=== PATIENT | male | born 1990 | race Caucasian/White ===

== ENCOUNTER 2019-10-29 04:49 | Emergency (ER) | payer OTHER, SELFPAY ==
[2019-10-29 04:55] VITALS: BP 178/108; PULSE 111; RESP 18; TEMP 36.6; O2SAT 92; BMI 33.8
[2019-10-29 05:07] VITALS: RESP 18; O2SAT 100
[2019-10-29] MEDS: ondansetron 2 mg/ML SDV 2 mL 4 MG IVP (05:07)
[2019-10-29] MEDS: HYDROmorphone 1 mg/mL INJ 1 mL IVP (05:07)
[2019-10-29] MEDS: lactated ringers 1,000 ML 200 ML IV (05:08)
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
[2019-10-29 05:29] VITALS: RESP 18; O2SAT 99
[2019-10-29] MEDS: fentaNYL 50 mcg/mL INJ 2mL 100 MCG IVP (05:29)
[2019-10-29] MEDS: eye irrigation 30 mL Btl EYE-BOTH (05:29)
[2019-10-29 05:49] VITALS: BP 140/77; PULSE 106; RESP 18; O2SAT 96
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
[2019-10-29 06:49] VITALS: BP 148/92; PULSE 78; RESP 18; O2SAT 97
--- NOTE | 2019-10-30 10:26 | DCPLANNER ---
right of way manager had message to schedule a follow up appointment with Wound Care. right of way manager called Wound Care, spoke with Lindy, a follow up appointment is scheduled for Sunday, November 03, 2019 at 2:[address] Martel. right of way manager called patient and gave patient the appointment information. Patient stated that he would attend the appointment.
== END 2019-10-29 06:52 | disposition home or self-care (01) ==
PROVIDERS: Emergency Provider Emergency Medicine
DX: T23.291A Burn of second degree of multiple sites of right wrist and hand, initial encounter (principal); T20.19XA Burn of first degree of multiple sites of head, face, and neck, initial encounter; X08.8XXA Exposure to other specified smoke, fire and flames, initial encounter; Y92.69 Other specified industrial and construction area as the place of occurrence of the external cause
CPT/HCPCS: 12345; 71045; 96360; 96361; 96365; 96366; 96375; 99283; J1170; J2405; J3010

== ENCOUNTER 2019-11-16 13:08 | Outpatient (RCR) | payer OTHER, SELFPAY | END 2019-11-29 23:59 | disposition home or self-care (01) | LOC: WOUND 13:08 | PROVIDERS: Visit Provider Surgery | DX: T23.351A Burn of third degree of right palm, initial encounter (principal); T23.371A Burn of third degree of right wrist, initial encounter; X08.8XXA Exposure to other specified smoke, fire and flames, initial encounter | CPT/HCPCS: 97597; 97598; 99203; 99212; 99214 ==

== ENCOUNTER 2019-11-21 10:49 | Outpatient (CLI) | payer OTHER, SELFPAY | END 2019-11-21 10:50 | disposition home or self-care (01) | LOC: SPT 10:49 | PROVIDERS: PCP Electrodiagnostic Medicine; Referring Provider Surgery; Visit Provider Surgery | DX: T23.302D Burn of third degree of left hand, unspecified site, subsequent encounter (principal); X58.XXXD Exposure to other specified factors, subsequent encounter | CPT/HCPCS: 97750 ==

== ENCOUNTER 2020-02-25 14:50 | Outpatient (CLI) | payer BC, SELFPAY ==
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
== END 2020-02-25 14:51 | disposition home or self-care (01) ==
LOC: RADWPI 14:55
PROVIDERS: Family Provider Nurse Practitioner Family; PCP Nurse Practitioner Family; Visit Provider Nurse Practitioner Family
DX: R07.81 Pleurodynia (principal)
CPT/HCPCS: 71046; 71100

== ENCOUNTER 2021-03-16 14:30 | Outpatient (CLI) | payer BC, SELFPAY ==
--- NOTE | 2021-03-16 14:38 | XR_ITS ---
WS: [id number] HAND LEFT TECHNIQUE: 3 views of the left hand CLINICAL INFORMATION: LEFT HAND PAIN COMPARISON: None. FINDINGS: Normal metacarpals. Normal MCP joint. Metacarpal heads are normal in appearance. Normal PIP and DIP j oints. No evidence of acute fracture or dislocation. Radiocarpal joint: Normal. Carpal bones: Normal. XR/XR hand LT min 3V* [id number] IMPRESSION: Normal left hand.
== END 2021-03-16 14:31 | disposition home or self-care (01) ==
PROVIDERS: PCP Clinical Nurse Specialist Adult Health; Visit Provider Clinical Nurse Specialist Adult Health
DX: M79.642 Pain in left hand (principal)
CPT/HCPCS: 73130

== ENCOUNTER 2021-04-13 08:12 | Outpatient (CLI) | payer BC, SELFPAY ==
[2021-04-13 09:24] LABS: Cortisol Random 10.78 ug/dL (2.47-19.5); Free T4 Free Thyroxine 0.97 ng/dL (0.82-1.77); Testosterone Total 484.6 ng/dL (249-836); Thyroid Stimulating Hormone 0.97 uIU/mL (0.27-4.20)
[2021-04-13 09:56] LABS: Prolactin 10.54 ng/mL (4.0-15.2)
[2021-04-13 09:57] LABS: Follicle Stimulating Hormone 4.5 mIU/mL (1.5-12.4); Luteinizing Hormone 5.5 mIU/mL (1.7-8.6)
[2021-04-16 18:36] LABS: Testosterone, Free 82.4 pg/mL (46.0-224.0)
[2021-04-19 13:13] LABS: IGF1 LC/MS 85 ng/mL (53-331); Z Score (Male) -1.2 SD (-2.0 - +2.0)
== END 2021-04-13 08:13 | disposition home or self-care (01) ==
PROVIDERS: PCP Clinical Nurse Specialist Adult Health; Visit Provider Internal Medicine
DX: E23.7 Disorder of pituitary gland, unspecified (principal); E29.1 Testicular hypofunction
CPT/HCPCS: 36415; 82533; 83001; 83002; 84146; 84305; 84402; 84403; 84439; 84443

== ENCOUNTER 2021-12-19 10:21 | Emergency (ER) | payer BC, SELFPAY ==
--- NOTE | 2021-12-19 10:22 | XRR_ITS ---
PROCEDURE INFORMATION: Exam: XR Chest Exam date and time: 12/19/2021 10:33 AM Age: 31 years old Clinical indication: Shortness of breath; Additional info: SOB TECHNIQUE: Imaging protocol: XR of the chest. Views: 1 view. COMPARISON: CR XR chest 2V* [id number] 02/25/2020 3:07 PM FINDINGS: Lungs: COPD and interstitial prominence. Pleural spaces: No pleural effusion. Heart/Mediastinum: Epicardial fat, without cardiomegaly. Bones/joints: Unremarkable. XR/XR chest 1V portable [id number] IMPRESSION: COPD and interstitial prominence.
--- NOTE | 2021-12-19 10:29 | ECG_ITS ---
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 Measurements Intervals [place] Rate: 83 P: 62 HI: 167 QRS: 47 QRSD: 90 T: 54 QT: 351 QTc: 413 Interpretive Statements SINUS RHYTHM WITH SINUS ARRHYTHMIA No previous ECG available for comparison Electronically Signed On 12-19-2021 12:59:09 CDT by Cornelius Ray M.D. [id number]
[2021-12-19 10:31] VITALS: BP 130/85; PULSE 96; RESP 16; O2SAT 98
--- NOTE | 2021-12-19 10:32 | W.ED.SOB ---
HPI - SOB/Dyspnea General: Chief Complaint: Shortness of Breath/Dyspnea Stated Complaint: Difficulty Breathing Time Seen by Provider: 12/19/21 10:24 Source: patient Mode of arrival: ambulatory Limitations: no limitations History of Present Illness: HPI Narrative: 31-year-old male states that he has a history of asthma states he started having shortness of breath roughly 2 hours ago after mowing his yard states that he had done 2 breathing treatments with minimal relief he states he does get quite anxious when he has anxiety attack started feeling very anxious and felt like to get a deep breath then. He states he also has a history of a spontaneous pneumothorax in the past. Denies any fever denies any cough denies any chest pain. [facility] ED PFSH: Medical History (Updated 12/19/21 @ 11:48 by Juancarlos Acuna MD) Anxiety Asthma Depression Testosterone deficiency in male Family History Father Diabetes Hypertension Mother , Passed last month from pneumonia Diabetes Hypertension Stroke Social History Smoking and tobacco status: former smoker Alcohol intake: current Alcohol intake frequency: holidays/special occasions only Alcohol type: beer and hard liquor Course Vital Signs: Vital signs: Vital Signs Pulse Rate 85 12/19/21 11:16 Respiratory Rate 12 12/19/21 11:16 Blood Pressure 139/79 12/19/21 11:16 Pulse Oximetry 90 12/19/21 11:16 MDM - SOB/Dyspnea Medical Decision Making Patient presents here with dyspnea likely from an asthma exacerbation likely had a panic attack as well from his asthma exacerbated his symptoms he feels much improved here after breathing treatment and Ativan we will place him on 5 days of steroids his x-ray here is normal blood work is normal as well troponin and D-dimer is negative he is to follow-up with PCP and return if worsening. Lab Data : 12/19/21 10:41 12/19/21 10:41 Labs/Radiology: Laboratory Results WBC 8.3 10^3/uL (4.0-10.0) 12/19/21 10:41 RBC 4.97 10^6/uL (4.1-5.3) 12/19/21 10:41 Hgb 15.1 g/dL (11.7-16.6) 12/19/21 10:41 Hct 42.2 % (42.0-52.0) 12/19/21 10:41 MCV 84.9 fl (80-94) 12/19/21 10:41 MCH 30.4 pg (28.0-34.0) 12/19/21 10:41 MCHC 35.8 g/dL (30.0-36.0) 12/19/21 10:41 RDW 13.0 % (12.1-15.1) 12/19/21 10:41 Plt Count 223 10^3/cmm (130-400) 12/19/21 10:41 MPV 11.7 fL (7.4-10.4) H 12/19/21 10:41 Neut % (Auto) 56.7 % 12/19/21 10:41 Lymph % (Auto) 34.0 % 12/19/21 10:41 [place] % (Auto) 5.0 % 12/19/21 10:41 Eos % (Auto) 3.4 % 12/19/21 10:41 Baso % (Auto) 0.7 % 12/19/21 10:41 Neut # (Auto) 4.68 10^3/uL (1.8-7.7) 12/19/21 10:41 Lymph # (Auto) 2.8 10^3/uL (0.8-4.8) 12/19/21 10:41 [place] # (Auto) 0.4 10^3/uL (0.2-0.9) 12/19/21 10:41 Eos # (Auto) 0.3 10^3/uL (0.0-0.8) 12/19/21 10:41 Baso # (Auto) 0.1 10^3/uL (0.0-0.1) 12/19/21 10:41 Nucleated RBC % (auto) 0 % 12/19/21 10:41 Nucleated RBCs # 0.0 /100WBC 12/19/21 10:41 D-Dimer <= 0.27 ug/mIFEU (0-0.59) 12/19/21 10:56 Sodium 141 mmol/L (136-145) 12/19/21 10:41 Potassium 3.3 mmol/L (3.5-5.1) L 12/19/21 10:41 Chloride 104 mmol/L (98-107) 12/19/21 10:41 Carbon Dioxide 22 mmol/L (22-29) 12/19/21 10:41 Anion Gap 18.3 (5-19) 12/19/21 10:41 BUN 11 mg/dL (6-20) 12/19/21 10:41 Creatinine 0.9 mg/dL (0.7-1.2) 12/19/21 10:41 GFR Calculation 97.2 mL/min (90-130) 12/19/21 10:41 Glucose 137 mg/dL (65-115) H 12/19/21 10:41 Calculated Osmolality 294 mOsm/kg (285-295) 12/19/21 10:41 Calcium 8.7 mg/dL (8.5-10.5) 12/19/21 10:41 Total Bilirubin 0.5 mg/dL (0.15-1.2) 12/19/21 10:41 AST 25 U/L (0-40) 12/19/21 10:41 ALT 25 U/L (0-41) 12/19/21 10:41 Alkaline Phosphatase 72 IU/L (40-130) 12/19/21 10:41 Troponin T Baseline 7 ng/L (0-15) 12/19/21 10:41 Total Protein 7.1 g/dL (6.6-8.7) 12/19/21 10:41 Albumin 4.7 g/dL (3.5-5.2) 12/19/21 10:41 Globulin 2.4 g/dL (1.3-4.6) 12/19/21 10:41 EKG Data EKG 1: I personally reviewed and interpreted this EKG as follows: EKG Interpretation Date: 12/19/21 EKG interpretation time: 10:45 Interpretation: nsr hr [address] or t wave abnormalities qrs 90 qtc 391 Discharge Plan Discharge Patient Disposition: Home Clinical Impression: Asthma with exacerbation Condition: Stable Prescriptions: New prednisone 50 mg tablet 50 mg PO DAILY Qty: 5 0RF No Action escitalopram oxalate [Lexapro] 10 mg tablet See Rx Instructions PO DAILY 0RF Rx Instructions: 10 mg daily for 7 days then 10 mg twice a day PO daily; lorazepam 0.5 mg tablet 0.5 mg PO BID PRN0RF hydroxyzine HCl 10 mg tablet 10 mg PO .at bedtime 0RF Discharge Orders: Discharge ED (Routine); Ordered 12/19/21 Ordered By: Juancarlos Acuna Discharge Diet: Advance as tolerated Discharge Activity: Resume usual activity Patient Instructions: Asthma (ED) Coding Level of Care Code ED Software Applications Specialist for Mago Griggs
[2021-12-19 10:35] VITALS: PULSE 90; RESP 16; O2SAT 95
[2021-12-19] MEDS: ipratropium-albuterol 3 mL Neb INHALATION (10:48)
[2021-12-19 10:49] VITALS: PULSE 89
[2021-12-19 10:49] LABS: Basophils # 0.1 10^3/uL (0.0-0.1); Basophils % 0.7 %; Eosinophils # 0.3 10^3/uL (0.0-0.8); Eosinophils % 3.4 %; Hematocrit 42.2 % (42.0-52.0); Hemoglobin 15.1 g/dL (11.7-16.6); Lymphocytes # 2.8 10^3/uL (0.8-4.8); Mean Corpuscular HGB Conc 35.8 g/dL (30.0-36.0); Mean Corpuscular Hemoglobin 30.4 pg (28.0-34.0); Mean Corpuscular Volume 84.9 fl (80-94); Mean Platelet Volume 11.7 fL (7.4-10.4); Monocytes # 0.4 10^3/uL (0.2-0.9); Neutrophils # 4.68 10^3/uL (1.8-7.7); Neutrophils % 56.7 %; Nucleated Red Blood Cells % 0 %; Platelet Count 223 10^3/cmm (130-400); Red Blood Count 4.97 10^6/uL (4.1-5.3); White Blood Count 8.3 10^3/uL (4.0-10.0)
[2021-12-19] MEDS: LORazepam 2 mg/mL INJ 1 mL 1 MG IVP (10:52)
[2021-12-19 11:07] LABS: Alanine Aminotransferase 25 U/L (0-41); Albumin Level 4.7 g/dL (3.5-5.2); Alkaline Phosphatase 72 IU/L (40-130); Aspartate Amino Transferase 25 U/L (0-40); Blood Urea Nitrogen 11 mg/dL (6-20); Calcium 8.7 mg/dL (8.5-10.5); Carbon Dioxide 22 mmol/L (22-29); Chloride 104 mmol/L (98-107); Globulin 2.4 g/dL (1.3-4.6); Glomerular Filtration Rate 97.2 mL/min (90-130); Glucose 137 mg/dL (65-115); Osmolality Calculated 294 mOsm/kg (285-295); Sodium 141 mmol/L (136-145); Total Bilirubin 0.5 mg/dL (0.15-1.2); Total Protein 7.1 g/dL (6.6-8.7)
[2021-12-19 11:14] LABS: D Dimer <= 0.27 ug/mIFEU (0-0.59)
[2021-12-19 11:16] VITALS: BP 139/79; PULSE 85; RESP 12; O2SAT 90
[2021-12-19 11:25] LABS: Anion Gap 18.3 (5-19)
[2021-12-19 11:26] LABS: Potassium 3.3 mmol/L (3.5-5.1)
[2021-12-19 11:44] LABS: Troponin(5th) Baseline 7 ng/L (0-15)
[2021-12-19 11:58] VITALS: BP 141/78; PULSE 91; RESP 14; O2SAT 97
--- NOTE | 2021-12-28 21:33 | W.ED.SOB ---
HPI - SOB/Dyspnea General: Chief Complaint: Shortness of Breath/Dyspnea Stated Complaint: Difficulty Breathing Time Seen by Provider: 12/19/21 10:24 Source: patient Mode of arrival: ambulatory Limitations: no limitations History of Present Illness: HPI Narrative: . Associated symptoms: Deny abdominal pain, chest pain, fever(s), nausea or vomiting Review of Systems Const: Denies: fever(s), chills, body aches or change in appetite Eyes: Denies: blurry vision or eye discomfort ENMT: Denies: throat pain or dental pain Card: Denies: chest pain Resp: Reports: dyspnea and wheezing GI: Denies: abdominal pain, nausea, vomiting or diarrhea : Denies: dysuria Musc: Denies: neck pain or back pain Skin/Breast: Denies: rash Neuro: Denies: headache(s) Psych: Reports: anxiety Navdeep/Lymph: Denies: easy bruising All/Imm: Denies: urticaria PFSH ED PFSH: Medical History (Updated 12/27/21 @ 00:00 by ) Anxiety Asthma Depression Testosterone deficiency in male Family History Father Diabetes Hypertension Mother , Passed last month from pneumonia Diabetes Hypertension Stroke Social History Smoking and tobacco status: former smoker Alcohol intake: current Alcohol intake frequency: holidays/special occasions only Alcohol type: beer and hard liquor Physical Exam Const: COMMON NORMALS: patient oriented x3 GENERAL APPEARANCE: anxious HENMT: COMMON NORMALS: normocephalic and atraumatic HEAD & SCALP: normocephalic and atraumatic Eye: COMMON NORMALS: Equal, round and reactive pupils present and EOMs intact bilaterally PUPIL: Yes Equal, round and reactive pupils present Neck/C-Spine: COMMON NORMALS: full ROM and supple Chest: COMMONS NORMALS: normal inspection of the chest and normal palpation of entire chest wall Resp: COMMON NORMALS: No retractions and No use of accessory muscles AUSCULTATION: wheezes Cardio: COMMON NORMALS: regular rate, regular rhythm and No murmurs present (Cardio) RATE: regular rate RHYTHM: regular rhythm GI: COMMON NORMALS: Normal to inspection, nondistended, normoactive bowel sounds present, Soft to palpation, non-tender and no masses PALPATION: Yes Soft to palpation Extremity: COMMON NORMALS: normal to inspection and full ROM Neuro: COMMON NORMALS: patient oriented x3, moves all extremities and no focal motor deficits Psych: COMMON NORMALS: mental status grossly normal, Normal thought process present and cooperative THOUGHT PROCESS: Normal thought process present Skin: COMMON NORMALS: no rashes or lesions noted and no wounds GENERAL SKIN EXAM: no rashes or lesions noted Course Vital Signs: Vital signs: Vital Signs Pulse Rate 91 12/19/21 11:58 Respiratory Rate 14 12/19/21 11:58 Blood Pressure 141/78 12/19/21 11:58 Pulse Oximetry 97 12/19/21 11:58 MDM - SOB/Dyspnea Medical Decision Making Addendum was completed review of system and physical exam for previous note when patient was seen by me on 12/19 Lab Data : 12/19/21 10:41 12/19/21 10:41 Labs/Radiology: Radiology Impressions Chest X-Ray 12/19/21 10:22 IMPRESSION: COPD and interstitial prominence. Laboratory Results WBC 8.3 10^3/uL (4.0-10.0) 12/19/21 10:41 RBC 4.97 10^6/uL (4.1-5.3) 12/19/21 10:41 Hgb 15.1 g/dL (11.7-16.6) 12/19/21 10:41 Hct 42.2 % (42.0-52.0) 12/19/21 10:41 MCV 84.9 fl (80-94) 12/19/21 10:41 MCH 30.4 pg (28.0-34.0) 12/19/21 10:41 MCHC 35.8 g/dL (30.0-36.0) 12/19/21 10:41 RDW 13.0 % (12.1-15.1) 12/19/21 10:41 Plt Count 223 10^3/cmm (130-400) 12/19/21 10:41 MPV 11.7 fL (7.4-10.4) H 12/19/21 10:41 Neut % (Auto) 56.7 % 12/19/21 10:41 Lymph % (Auto) 34.0 % 12/19/21 10:41 [place] % (Auto) 5.0 % 12/19/21 10:41 Eos % (Auto) 3.4 % 12/19/21 10:41 Baso % (Auto) 0.7 % 12/19/21 10:41 Neut # (Auto) 4.68 10^3/uL (1.8-7.7) 12/19/21 10:41 Lymph # (Auto) 2.8 10^3/uL (0.8-4.8) 12/19/21 10:41 [place] # (Auto) 0.4 10^3/uL (0.2-0.9) 12/19/21 10:41 Eos # (Auto) 0.3 10^3/uL (0.0-0.8) 12/19/21 10:41 Baso # (Auto) 0.1 10^3/uL (0.0-0.1) 12/19/21 10:41 Nucleated RBC % (auto) 0 % 12/19/21 10:41 Nucleated RBCs # 0.0 /100WBC 12/19/21 10:41 D-Dimer <= 0.27 ug/mIFEU (0-0.59) 12/19/21 10:56 Sodium 141 mmol/L (136-145) 12/19/21 10:41 Potassium 3.3 mmol/L (3.5-5.1) L 12/19/21 10:41 Chloride 104 mmol/L (98-107) 12/19/21 10:41 Carbon Dioxide 22 mmol/L (22-29) 12/19/21 10:41 Anion Gap 18.3 (5-19) 12/19/21 10:41 BUN 11 mg/dL (6-20) 12/19/21 10:41 Creatinine 0.9 mg/dL (0.7-1.2) 12/19/21 10:41 GFR Calculation 97.2 mL/min (90-130) 12/19/21 10:41 Glucose 137 mg/dL (65-115) H 12/19/21 10:41 Calculated Osmolality 294 mOsm/kg (285-295) 12/19/21 10:41 Calcium 8.7 mg/dL (8.5-10.5) 12/19/21 10:41 Total Bilirubin 0.5 mg/dL (0.15-1.2) 12/19/21 10:41 AST 25 U/L (0-40) 12/19/21 10:41 ALT 25 U/L (0-41) 12/19/21 10:41 Alkaline Phosphatase 72 IU/L (40-130) 12/19/21 10:41 Troponin T Baseline 7 ng/L (0-15) 12/19/21 10:41 Total Protein 7.1 g/dL (6.6-8.7) 12/19/21 10:41 Albumin 4.7 g/dL (3.5-5.2) 12/19/21 10:41 Globulin 2.4 g/dL (1.3-4.6) 12/19/21 10:41 Discharge Plan Discharge Patient Disposition: Home Clinical Impression: Asthma with exacerbation Condition: Stable Prescriptions: New prednisone 50 mg tablet 50 mg PO DAILY Qty: 5 0RF No Action escitalopram oxalate [Lexapro] 10 mg tablet See Rx Instructions PO DAILY 0RF Rx Instructions: 10 mg daily for 7 days then 10 mg twice a day PO daily; lorazepam 0.5 mg tablet 0.5 mg PO BID PRN0RF hydroxyzine HCl 10 mg tablet 10 mg PO .at bedtime 0RF Discharge Orders: Discharge ED (Routine); Ordered 12/19/21 Ordered By: Juancarlos Acuna Discharge Diet: Advance as tolerated Discharge Activity: Resume usual activity Patient Instructions: Asthma (ED) Coding Level of Care Code ED Atmospheric Technician for Mago Griggs
== END 2021-12-19 11:59 | disposition home or self-care (01) ==
PROVIDERS: Emergency Provider Emergency Medicine
DX: J45.901 Unspecified asthma with (acute) exacerbation (principal)
CPT/HCPCS: 71045; 80053; 84484; 85025; 85378; 93005; 94640; 96374; 96375; 99285; J2060; J2930

== ENCOUNTER → 2022-01-14 13:58 | Outpatient (BNVA) | payer BC, SELFPAY | DX: I10 Essential (primary) hypertension (principal) | CPT/HCPCS: 80053; 80061 ==

== ENCOUNTER → 2023-02-24 08:24 | Outpatient (BNVA) | payer OTHER, SELFPAY | PROVIDERS: PCP Clinical Nurse Specialist Adult Health; Visit Provider Clinical Nurse Specialist Adult Health | DX: I10 Essential (primary) hypertension (principal); E29.1 Testicular hypofunction | CPT/HCPCS: 80053; 80061; 82040; 84270; 84403; 85025 ==

== ENCOUNTER → 2023-04-06 10:14 | Outpatient (BNVA) | payer OTHER, SELFPAY | PROVIDERS: PCP Clinical Nurse Specialist Adult Health; Visit Provider Clinical Nurse Specialist Adult Health | DX: E29.1 Testicular hypofunction (principal) | CPT/HCPCS: 82040; 84270; 84403 ==

== ENCOUNTER 2023-04-10 03:04 | Emergency (ER) | payer OTHER, SELFPAY ==
--- NOTE | 2023-04-10 03:17 | XRR_ITS ---
PROCEDURE INFORMATION: Exam: XR Chest Exam date and time: 04/10/2023 3:18 AM Age: 32 years old Clinical indication: Shortness of breath; Left-sided; Patient HX: Left sided chest pain with SOB. TECHNIQUE: Imaging protocol: Radiologic exam of the chest. Views: 1 view. COMPARISON: CR XR chest 1V portable [id number] 12/19/2021 10:33 AM FINDINGS: Lungs: Unremarkable. No consolidation. Pleural spaces: Unremarkable. No pleural effusion. No pneumothorax. Heart/Mediastinum: Unremarkable. No cardiomegaly. Bones/joints: Unremarkable. XR/XR chest 1V portable [id number] IMPRESSION: No acute findings.
[2023-04-10 03:20] VITALS: BP 145/79; PULSE 128; RESP 18; O2SAT 98; BMI 28.7
--- NOTE | 2023-04-10 03:23 | ECG_ITS ---
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 Measurements Intervals [place] Rate: 57 P: 30 ID: 162 QRS: 61 QRSD: 98 T: 54 QT: 407 QTc: 399 Interpretive Statements SINUS BRADYCARDIA POSSIBLE RIGHT VENTRICULAR CONDUCTION DELAY [RSR (QR) IN V1/V2] Compared to ECG 12/19/2021 10:45:30 Sinus rhythm no longer present Sinus arrhythmia no longer present Electronically Signed On 04-10-2023 10:54:46 CDT by Zeus Daniels M.D. [id number]
[2023-04-10 03:33] VITALS: BP 150/86; PULSE 58; RESP 17; O2SAT 98
[2023-04-10 03:45] LABS: Basophils % 0.3 %; Eosinophils % 0.2 %; Hematocrit 41.6 % (37-53); Lymphocytes # 0.6 10^3/uL (0.8-4.8); Mean Corpuscular HGB Conc 33.4 g/dL (30-55); Mean Corpuscular Volume 89.8 fl (82-101); Mean Platelet Volume 12.6 fL (7.4-10.4); Monocytes # 0.1 10^3/uL (0.2-0.9); Monocytes % 1.3 %; Neutrophils # 5.65 10^3/uL (1.8-7.7); Neutrophils % 88.9 %; Nucleated Red Blood Cells % 0 %; Platelet Count 182 10^3/cmm (157-399); Red Blood Count 4.63 10^6/uL (3.85-5.65); Red Cell Distribution Width 13.3 % (12.1-15.1); White Blood Count 6.35 10^3/uL (3.29-11.43)
[2023-04-10] MEDS: ondansetron 2 mg/ML SDV 2 mL 4 MG IVP (04:05)
[2023-04-10 04:06] VITALS: RESP 15
[2023-04-10 04:06] LABS: SARS Covid-2 Antigen negative (Negative)
[2023-04-10] MEDS: ketorolac 30 mg/mL INJ 15 MG IVP (04:06)
[2023-04-10] MEDS: morphine 4 mg/mL SDV 1 mL IVP (04:06)
[2023-04-10 04:17] LABS: Troponin(5th) Baseline 6 ng/L (0-15)
[2023-04-10 04:27] LABS: Alanine Aminotransferase 16 U/L (0-41); Albumin Level 4.8 g/dL (3.5-5.2); Alkaline Phosphatase 88 U/L (40-130); Aspartate Amino Transferase 19 U/L (0-40); Blood Urea Nitrogen 10 mg/dL (6-20); Calcium 9.3 mg/dL (8.5-10.5); Carbon Dioxide 28 mmol/L (22-29); Chloride 104 mmol/L (98-107); Globulin 2.4 g/dL (1.3-4.6); Glomerular Filtration Rate 96.6 mL/min (90-130); Glucose 139 mg/dL (65-115); NT Pro B Type Natriuretic Pept 252 pg/mL (0-125); Osmolality Calculated 293 mOsm/kg (285-295); Sodium 141 mmol/L (136-145); Total Bilirubin 0.7 mg/dL (0.15-1.2); Total Protein 7.2 g/dL (6.6-8.7)
[2023-04-10 04:35] VITALS: PULSE 52; RESP 18; O2SAT 97
[2023-04-10] MEDS: ipratropium-albuterol 3 mL Neb INHALATION (04:35)
[2023-04-10 04:39] VITALS: PULSE 55; RESP 1; O2SAT 98
[2023-04-10] MEDS: methylPREDNISolone sod succ 125 MG in water for injection-sterile 2 ML 24 MG IVP (04:54)
[2023-04-10 05:03] VITALS: BP 149/84; PULSE 63; RESP 12; O2SAT 98
--- NOTE | 2023-04-10 05:28 | ED_ITS ---
HPI - Chest Pain General: Chief Complaint: Chest Pain Stated Complaint: shortness of breath and chest pain Time Seen by Provider: 04/10/23 03:41 History of Present Illness: 32-year-old male he states he has been sick for about 2 weeks. He has had cough, congestion. He developed a pleuritic chest pain, that is significantly worse with coughing and deep breathing. Pain is mainly on the left side of his chest. He says that he ran a fever yesterday. Not today. He presents from work. He says that his albuterol has helped to some degree, but he is out of it now. He presents worried because he had a spontaneous pneumothorax as a child, and does not want that to happen again. Associated symptoms: Reports abdominal pain, dyspnea, fever(s) and nausea; Deny palpitations or vomiting Review of Systems Const: Reports: fever(s) and chills Eyes: Denies: change in vision ENMT: Denies: throat pain Card: Reports: chest pain; Denies: palpitations Resp: Reports: dyspnea and productive cough GI: Reports: abdominal pain and nausea; Denies: vomiting PFSH ED PFSH: Medical History Anxiety Asthma Depression Hypertension Testosterone deficiency in male Surgical History No pertinent past surgical history Family History Father Diabetes Hypertension Mother , Passed last month from pneumonia Diabetes Hypertension Stroke Social History Smoking and tobacco status: former smoker Alcohol intake: current Alcohol intake frequency: holidays/special occasions only Alcohol type: beer and hard liquor Physical Exam Const: COMMON NORMALS: no acute distress GENERAL APPEARANCE: cooperative and anxious; not ill appearing and not frail appearing HENMT: COMMON NORMALS: normocephalic, atraumatic and Normal external nose present HEAD & SCALP: normocephalic and atraumatic FACE & SINUS: normal facial exam and face symmetric NOSE: Normal external nose present Eye: COMMON NORMALS: Equal, round and reactive pupils present and EOMs intact bilaterally PUPIL: Yes Equal, round and reactive pupils present Neck/C-Spine: GENERAL: Yes trachea midline Lymph: LYMPHATIC: no lymphadenopathy noted Chest: CHEST: Yes Symmetrical chest wall rise Resp: COMMON NORMALS: normal respiratory effort, No retractions, No use of accessory muscles and clear to auscultation bilaterally AUSCULTATION: clear to auscultation bilaterally Cardio: COMMON NORMALS: regular rate and regular rhythm RATE: regular rate RHYTHM: regular rhythm GI: COMMON NORMALS: Normal to inspection, nondistended, normoactive bowel sounds present Extremity: COMMON NORMALS: no pedal edema Neuro: HAYDEE COMA SCALE: document GCS findings [place] coma scale eye opening: Spontaneous [place] coma scale verbal response: Orientated [place] coma scale motor response: Obey commands [place] coma scale total score: 15 SENSORY EXAM: Yes extremities (intact) Psych: COMMON NORMALS: speech normal SPEECH: Yes normal speech Skin: COMMON NORMALS: no rashes or lesions noted GENERAL SKIN EXAM: no rashes or lesions noted Course Vital Signs: Vital signs: Vital Signs Pulse Rate 63 04/10/23 05:03 Respiratory Rate 12 04/10/23 05:03 Blood Pressure 149/84 04/10/23 05:03 Pulse Oximetry 98 04/10/23 05:03 Oxygen Delivery Me thod Room Air 04/10/23 04:39 MDM - Chest Pain Medical Decision Making Patient with ongoing pleuritic reproducible left-sided chest discomfort for quite some time. CBC is normal. BMP is not remarkable. Chest x-ray is ne gative. EKG shows sinus bradycardia with normal axis normal intervals and no acute ST wave changes. Troponin is 6. Lab Data 04/10/23 03:27 04/10/23 03:27 Radiology Impressions Chest X-Ray 04/10/23 03:17 IMPRESSION: No acute findings. Laboratory Results WBC 6.35 10^3/uL (3.29-11.43) 04/10/23 03:27 RBC 4.63 10^6/uL (3.85-5.65) 04/10/23 03:27 Hgb 13.90 g/dL (11.27-16.99) 04/10/23 03:27 Hct 41.6 % (37-53) 04/10/23 03:27 MCV 89.8 fl (82-101) 04/10/23 03:27 MCH 30.0 pg (27-33) 04/10/23 03:27 MCHC 33.4 g/dL (30-55) 04/10/23 03:27 RDW 13.3 % (12.1-15.1) 04/10/23 03:27 Plt Count 182 10^3/cmm (157-399) 04/10/23 03:27 MPV 12.6 fL (7.4-10.4) H 04/10/23 03:27 Neut % (Auto) 88.9 % 04/10/23 03:27 Lymph % (Auto) 9.0 % 04/10/23 03:27 [place] % (Auto) 1.3 % 04/10/23 03:27 Eos % (Auto) 0.2 % 04/10/23 03:27 Baso % (Auto) 0.3 % 04/10/23 03:27 Neut # (Auto) 5.65 10^3/uL (1.8-7.7) 04/10/23 03:27 Lymph # (Auto) 0.6 10^3/uL (0.8-4.8) L 04/10/23 03:27 [place] # (Auto) 0.1 10^3/uL (0.2-0.9) L 04/10/23 03:27 Eos # (Auto) 0.0 10^3/uL (0.0-0.8) 04/10/23 03:27 Baso # (Auto) 0.0 10^3/uL (0.0-0.1) 04/10/23 03:27 Nucleated RBC % (auto) 0 % 04/10/23 03:27 Nucleated RBCs # 0.0 /100WBC 04/10/23 03:27 Sodium 141 mmol/L (136-145) 04/10/23 03:27 Potassium 4.0 mmol/L (3.5-5.1) 04/10/23 03:27 Chloride 104 mmol/L (98-107) 04/10/23 03:27 Carbon Dioxide 28 mmol/L (22-29) 04/10/23 03:27 Anion Gap 13.0 (5-19) 04/10/23 03:27 BUN 10 mg/dL (6-20) 04/10/23 03:27 Creatinine 0.9 mg/dL (0.7-1.2) 04/10/23 03:27 GFR Calculation 96.6 mL/min (90-130) 04/10/23 03:27 Glucose 139 mg/dL (65-115) H 04/10/23 03:27 Calculated Osmolality 293 mOsm/kg (285-295) 04/10/23 03:27 Calcium 9.3 mg/dL (8.5-10.5) 04/10/23 03:27 Total Bilirubin 0.7 mg/dL (0.15-1.2) 04/10/23 03:27 AST 19 U/L (0-40) 04/10/23 03:27 ALT 16 U/L (0-41) 04/10/23 03:27 Alkaline Phosphatase 88 U/L (40-130) 04/10/23 03:27 Troponin T Baseline 6 ng/L (0-15) 04/10/23 03:27 NT-Pro-B Natriuret Pep 252 pg/mL (0-125) H 04/10/23 03:27 Total Protein 7.2 g/dL (6.6-8.7) 04/10/23 03:27 Albumin 4.8 g/dL (3.5-5.2) 04/10/23 03:27 Globulin 2.4 g/dL (1.3-4.6) 04/10/23 03:27 SARS-CoV-2 Ag (Rapid) negative (Negative) 04/10/23 03:35 Discharge Plan Discharge Patient Disposition: Home Clinical Impression: Bronchitis Condition: Stable Prescriptions: New hydrocodone-acetaminophen 5-325 mg tablet 1 tab PO Q8H PRN (Reason: pain) Qty: 7 0RF Medrol ([place]) 4 mg tablets,dose pack See Rx Instructions .ROUTE .COMPLEX Qty: 21 0RF Rx Instructions: orally per package directions doxycycline hyclate 100 mg tablet 100 mg PO BID 7 Days Qty: 14 0RF Continued ProAir HFA 90 mcg/actuation HFA aerosol inhaler 2 puff inhalation Q4H PRN (Reason: shortness of breath or wheezing) Qty: 8.5 1RF No Action hydroxyzine HCl 10 mg tablet 10 mg PO .at bedtime escitalopram oxalate 20 mg tablet 20 mg PO DAILY Qty: 90 3RF lisinopril 20 mg tablet 20 mg PO DAILY Qty: 90 3RF Hold Instructions: Doctor's Order (DME) BD Eclipse 25 gauge x 1 needle See Rx Instructions .Route Qty: 100 0RF Rx Instructions: As directed (DME) syringe (disposable) [CareTouch Luer Lock Syringe] 3 mL syringe See Rx Instructions .Route Qty: 100 0RF Rx Instructions: As directed testosterone cypionate [Depo-Testosterone] 200 mg/mL oil 100 mg SUBCUT Q7D Qty: 10 1RF Discharge Orders: Discharge ED (Routine); Ordered 04/10/23 Ordered By: Martinez Goodwin Referrals: Raul Riley CASH POSTING CLERK [Primary Care Provider] - 1-3 days Patient Instructions: Acute Bronchitis (ED), Opioid Safety, Pain Management Coding Level of Care Code ED Business Continuity Director for [facility]
== END 2023-04-10 05:04 | disposition home or self-care (01) ==
PROVIDERS: Emergency Provider Emergency Medicine; PCP Clinical Nurse Specialist Adult Health
DX: J40 Bronchitis, not specified as acute or chronic (principal); Z87.891 Personal history of nicotine dependence; R00.1 Bradycardia, unspecified
CPT/HCPCS: 71045; 80053; 83880; 84484; 85025; 87426; 93005; 94640; 96374; 96375; 99285; J1885; J2270; J2405; J2930

== ENCOUNTER → 2023-06-02 08:39 | Outpatient (BNVA) | payer OTHER, SELFPAY | PROVIDERS: PCP Clinical Nurse Specialist Adult Health; Visit Provider Clinical Nurse Specialist Adult Health | DX: E34.9 Endocrine disorder, unspecified (principal); I10 Essential (primary) hypertension | CPT/HCPCS: 80053; 82040; 84270; 84403; 85025 ==

== ENCOUNTER → 2023-07-07 12:49 | Outpatient (BNVA) | payer OTHER, SELFPAY | PROVIDERS: PCP Clinical Nurse Specialist Adult Health; Visit Provider Clinical Nurse Specialist Adult Health | DX: I10 Essential (primary) hypertension (principal) | CPT/HCPCS: 83036; 85025 ==

== ENCOUNTER → 2023-12-27 09:44 | Outpatient (BNVA) | payer OTHER, SELFPAY | PROVIDERS: PCP Clinical Nurse Specialist Adult Health; Visit Provider Clinical Nurse Specialist Adult Health | DX: E34.9 Endocrine disorder, unspecified (principal) | CPT/HCPCS: 82040; 84270; 84403; 85025 ==

== ENCOUNTER → 2024-01-09 14:39 | Outpatient (BNVA) | payer OTHER, SELFPAY | PROVIDERS: PCP Clinical Nurse Specialist Adult Health; Visit Provider Clinical Nurse Specialist Adult Health | DX: R63.4 Abnormal weight loss (principal); R11.10 Vomiting, unspecified | CPT/HCPCS: 80053; 81000; 83690; 84153; 84443; 85025; 85651; 86140; 87086 ==

== ENCOUNTER 2024-05-03 22:48 | Emergency (ER) | payer OTHER, SELFPAY ==
[2024-05-03 23:02] VITALS: BP 148/93; PULSE 64; RESP 20; TEMP 36.6; O2SAT 100; BMI 26.2
[2024-05-03 23:08] VITALS: BP 144/75; PULSE 59; RESP 18; O2SAT 97
[2024-05-03] MEDS: ondansetron 2 mg/ML SDV 2 mL 4 MG IVP (23:28)
[2024-05-03] MEDS: morphine 4 mg/mL SDV 1 mL IVP (23:28)
[2024-05-03 23:29] LABS: Basophils # 0.1 10^3/uL (0.0-0.1); Basophils % 0.6 %; Eosinophils # 0.6 10^3/uL (0.0-0.8); Eosinophils % 6.9 %; Hematocrit 42.7 % (37-53); Lymphocytes # 1.6 10^3/uL (0.8-4.8); Lymphocytes % 18.6 %; Mean Corpuscular HGB Conc 33.3 g/dL (30-55); Mean Corpuscular Hemoglobin 30.4 pg (27-33); Mean Corpuscular Volume 91.4 fl (82-101); Mean Platelet Volume 11.7 fL (7.4-10.4); Monocytes # 0.5 10^3/uL (0.2-0.9); Monocytes % 5.7 %; Neutrophils # 5.67 10^3/uL (1.8-7.7); Nucleated Red Blood Cells % 0 %; Platelet Count 156 10^3/cmm (157-399); Red Blood Count 4.67 10^6/uL (3.85-5.65); Red Cell Distribution Width 13.3 % (12.1-15.1); White Blood Count 8.35 10^3/uL (3.29-11.43)
[2024-05-03] MEDS: sodium chloride 0.9% 1,000 ML 999 ML IV (23:29)
--- NOTE | 2024-05-03 23:41 | USR_ITS ---
PROCEDURE INFORMATION: Exam: US Scrotum and US Duplex Artery and Vein, Scrotum, Complete Exam date and time: 05/03/2024 11:49 PM Age: 34 years old Clinical indication: Patient HX: Right groin pain x 2 days. No trauma. No history of vasectomy; Additional info: Right testicular pain TECHNIQUE: Imaging protocol: Real-time ultrasound of the scrotum. Real-time duplex ultrasound scan of the arterial and venous flow of the scrotum with B-mode, color Doppler flow and spectral waveform analysis. Complete exam. Duplex exam was performed to evaluate for torsion and other vascular conditions. COMPARISON: No relevant prior studies available. FINDINGS: Right testicle: Normal. No mass. Normal arterial and venous waveforms on Doppler. No torsion. Left testicle: No mass. Normal arterial and venous waveforms on Doppler. No torsion. Epididymides: Normal. Scrotum/soft tissues: Normal. No visible hernia. US/US scrotum [id number] IMPRESSION: Normal scrotal ultrasound.
--- NOTE | 2024-05-03 23:42 | CTR_ITS ---
PROCEDURE INFORMATION: Exam: CT Abdomen And Pelvis With Contrast Exam date and time: 05/04/2024 12:17 AM Age: 34 years old Clinical indication: Abdominal pain; Localized; Right lower quadrant (rlq); Additional info: Rlq abd pain radiating into scrotum TECHNIQUE: Imaging protocol: Computed tomography of the abdomen and pelvis with contrast. Radiation optimization: All CT scans at this facility use at least one of these dose optimization techniques: automated exposure control; mA and/or kV adjustment per patient size (includes targeted exams where dose is matched to clinical indication); or iterative reconstruction. Contrast material: [id number]; Contrast volume: 100 ml; Contrast route: INTRAVENOUS (IV); COMPARISON: US scrotum [id number] 05/03/2024 11:49 PM RADIATION DOSE METRICS: Total DLP (mGy-cm): 737.65 FINDINGS: Liver: Normal. No mass. Gallbladder and biliary ducts: Normal. No calcified stones. No ductal dilation. Pancreas: Normal. No ductal dilation. Spleen: Normal. No splenomegaly. Adrenal glands: Normal. No mass. Kidneys and ureters: Right collecting system hydroureteronephrosis. Mild right perirenal inflammatory stranding. Calcified right distal ureter stone at the ureterovesical junction measures 2-3 mm diameter. Stomach and bowel: Unremarkable. No obstruction. No mucosal thickening. Appendix: Normal appendix. Intraperitoneal space: Unremarkable. No free air. No significant fluid collection. Vasculature: Unremarkable. No abdominal aortic aneurysm. Lymph nodes: Unremarkable. No enlarged lymph nodes. Urinary bladder: Unremarkable as visualized. Reproductive: Unremarkable as visualized. Bones/joints: Unremarkable. No acute fracture. Soft tissues: Unremarkable. CT/CT abdomen pelvis w con* [id number] IMPRESSION: Right renal obstructive uropathy changes secondary to distal ureterolithiasis.
[2024-05-03 23:44] LABS: Alanine Aminotransferase 16 U/L (0-41); Albumin Level 4.3 g/dL (3.5-5.2); Alkaline Phosphatase 93 U/L (40-130); Aspartate Amino Transferase 24 U/L (0-40); Blood Urea Nitrogen 15 mg/dL (6-20); Calcium 8.9 mg/dL (8.5-10.5); Carbon Dioxide 25 mmol/L (22-29); Chloride 104 mmol/L (98-107); Creatinine Clr Calc Pharmacy 131.5727; Globulin 2.6 g/dL (1.3-4.6); Glomerular Filtration Rate 84.5 mL/min (90-130); Glucose 124 mg/dL (65-115); Osmolality Calculated 292 mOsm/kg (285-295); Sodium 140 mmol/L (136-145); Total Bilirubin 0.5 mg/dL (0.15-1.2); Total Protein 6.9 g/dL (6.6-8.7)
--- NOTE | 2024-05-03 23:48 | W.ED.ABDPA2 ---
HPI - Abdominal Pain General: Chief Complaint: Abdominal Pain Stated Complaint: stabbing pain in genital into stomach n/v Time Seen by Provider: 05/03/24 23:04 History of Present Illness: Patient presents to the ER, with complaints of right groin pain. This is right lower abdominal groin pain that radiates into his right testicle. This pain has been going on for about 2 days. Pain is never had this patient before. He did have a yesterday. When he woke up this morning was feeling better. But when he took his dog for a walk his dog jerked on real hard and started having sharp stabbing pain up into his right scrotum pelvic region. Pain is unbearable and making him sick at his stomach. Patient denies any pain burning frequency with urination. Related Data Home Medications Medication Instructions Recorded Confirmed escitalopram oxalate 20 mg tablet 10 mg PO DAILY 01/09/24 01/09/24 oxcarbazepine 300 mg tablet 300 mg PO BID 01/09/24 01/09/24 Previous Rx's Medication Instructions Recorded safety needles 25 gauge x 1 (BD #100 ea 03/03/23 Eclipse) syringe (disposable) 3 mL #100 ea 03/03/23 (CareTouch Luer Lock Syringe) baclofen 5 mg tablet 5 mg PO BID #20 tabs 04/13/23 ondansetron 4 mg disintegrating 4 mg PO Q8H PRN nausea and 07/07/23 tablet vomiting #30 tabs testosterone cypionate 200 mg/mL 100 mg (0.5 mL) SUBCUT Q14D #1 mL 12/30/23 intramuscular oil (Depo-Testosterone) albuterol sulfate 90 mcg/actuation 2 puff inhalation Q4H PRN 01/09/24 aerosol inhaler (ProAir HFA) shortness of breath or wheezing #8.5 grams alcohol swabs 1 pad topical DIRECTED #200 ea 01/09/24 blood sugar diagnostic (Blood #200 ea 01/09/24 Glucose Test strips) blood-glucose meter #1 ea 01/09/24 lancets #200 ea 01/09/24 ketorolac 10 mg tablet 10 mg PO Q6H PRN Kidney stone pain 05/04/24 #14 tabs Allergies Allergy/AdvReac Type Severity Reaction Status Date / Time CERTAIN COLOGNES Allergy Unknown Unknown Uncoded 06/10/24 13:53 Review of Systems General: Reports: 10 or more systems reviewed and unremarkable except in HPI and below PFSH ED PFSH: Medical History Testosterone deficiency Insomnia Hypertension Asthma Depression Anxiety Testosterone deficiency in male Surgical History No pertinent past surgical history Family History Father Diabetes Hypertension Mother , Passed last month from pneumonia Diabetes Hypertension Stroke Social History Smoking and tobacco/nicotine status: former use of tobacco/nicotine Alcohol intake: current Alcohol intake frequency: holidays/special occasions only Alcohol type: beer and hard liquor Physical Exam Const: COMMON NORMALS: no acute distress, average body habitus, patient oriented x3, no limitations, healthy appearing, alert and well nourished HENMT: COMMON NORMALS: normocephalic, atraumatic, hearing grossly normal bilaterally, external ears normal, Normal external nose present and moist oral mucous membranes HEAD & SCALP: normocephalic and atraumatic NOSE: Normal external nose present EXTERNAL EAR: Yes external ears normal Neck/C-Spine: COMMON NORMALS: no JVD Chest: COMMONS NORMALS: normal inspection of the chest and normal palpation of entire chest wall Resp: COMMON NORMALS: normal respiratory effort, No retractions, No use of accessory muscles and clear to auscultation bilaterally AUSCULTATION: clear to auscultation bilaterally Cardio: COMMON NORMALS: no JVD, regular rate, regular rhythm, S1 normal heart sound present, S2 normal heart sound present, No gallops present (Cardio), No clicks present (Cardio), No murmurs present (Cardio) and No rub (Cardio) RATE: regular rate RHYTHM: regular rhythm HEART SOUNDS: S1 normal heart sound present and S2 normal heart sound present Neuro: COMMON NORMALS: patient oriented x3 SENSORIUM/ORIENTATION: Yes alert Course Vital Signs: Vital signs: Vital Signs Temperature 98 F 05/03/24 23:02 Pulse Rate 64 05/03/24 23:02 Respiratory Rate 20 H 05/03/24 23:02 Blood Pressure 148/93 05/03/24 23:02 Pulse Oximetry 100 05/03/24 23:02 MDM - Abdominal Pain Medical Decision Making Lab work was obtained as well as a scrotum and abdomen pelvis CT, lab work was essentially benign scrotal ultrasound was normal, abdomen pelvis CT showed a right renal ureteral stone near the UPJ junction approximately 2 to 3 mm in diameter. This was discussed with the patient and his . Patient be sent home with Toradol and instructed to follow-up with his PCP. Differential Diagnosis Likely abdominal pain Medical Records I reviewed the patient's medical records. Lab Data I reviewed the patient's lab results. 05/03/24 23:21 05/03/24 23:21 Labs/Radiology: Radiology Impressions Scrotum Ultrasound 05/03/24 23:41 IMPRESSION: Normal scrotal ultrasound. Abdomen/Pelvis CT 05/03/24 23:42 IMPRESSION: Right renal obstructive uropathy changes secondary to distal ureterolithiasis. Laboratory Results WBC 8.35 10^3/uL (3.29-11.43) 05/03/24 23:21 RBC 4.67 10^6/uL (3.85-5.65) 05/03/24 23:21 Hgb 14.20 g/dL (11.27-16.99) 05/03/24 23:21 Hct 42.7 % (37-53) 05/03/24 23:21 MCV 91.4 fl (82-101) 05/03/24 23:21 MCH 30.4 pg (27-33) 05/03/24 23:21 MCHC 33.3 g/dL (30-55) 05/03/24 23:21 RDW 13.3 % (12.1-15.1) 05/03/24 23:21 Plt Count 156 10^3/cmm (157-399) L 05/03/24 23:21 MPV 11.7 fL (7.4-10.4) H 05/03/24 23:21 Neut % (Auto) 68.0 % 05/03/24 23:21 Lymph % (Auto) 18.6 % 05/03/24 23:21 [place] % (Auto) 5.7 % 05/03/24 23:21 Eos % (Auto) 6.9 % 05/03/24 23:21 Baso % (Auto) 0.6 % 05/03/24 23:21 Neut # (Auto) 5.67 10^3/uL (1.8-7.7) 05/03/24 23:21 Lymph # (Auto) 1.6 10^3/uL (0.8-4.8) 05/03/24 23:21 [place] # (Auto) 0.5 10^3/uL (0.2-0.9) 05/03/24 23:21 Eos # (Auto) 0.6 10^3/uL (0.0-0.8) 05/03/24 23:21 Baso # (Auto) 0.1 10^3/uL (0.0-0.1) 05/03/24 23:21 Nucleated RBC % (auto) 0 % 05/03/24 23:21 Nucleated RBCs # 0.0 /100WBC 05/03/24 23:21 Sodium 140 mmol/L (136-145) 05/03/24 23:21 Potassium 4.0 mmol/L (3.5-5.1) 05/03/24 23:21 Chloride 104 mmol/L (98-107) 05/03/24 23:21 Carbon Dioxide 25 mmol/L (22-29) 05/03/24 23:21 Anion Gap 15.0 (5-19) 05/03/24 23:21 BUN 15 mg/dL (6-20) 05/03/24 23:21 Creatinine 1.0 mg/dL (0.7-1.2) 05/03/24 23:21 GFR Calculation 84.5 mL/min (90-130) L 05/03/24 23:21 Glucose 124 mg/dL (65-115) H 05/03/24 23:21 Calculated Osmolality 292 mOsm/kg (285-295) 05/03/24 23:21 Calcium 8.9 mg/dL (8.5-10.5) 05/03/24 23:21 Total Bilirubin 0.5 mg/dL (0.15-1.2) 05/03/24 23:21 AST 24 U/L (0-40) 05/03/24 23:21 ALT 16 U/L (0-41) 05/03/24 23:21 Alkaline Phosphatase 93 U/L (40-130) 05/03/24 23:21 Total Protein 6.9 g/dL (6.6-8.7) 05/03/24 23:21 Albumin 4.3 g/dL (3.5-5.2) 05/03/24 23:21 Globulin 2.6 g/dL (1.3-4.6) 05/03/24 23:21 Amorphous Sediment Not Reportable 05/04/24 00:50 All radiology interpretation(s) finalized by discharge Discharge Plan Discharge Patient Disposition: Home Clinical Impression: Kidney stone Condition: Stable Prescriptions: New ketorolac 10 mg tablet 10 mg PO Q6H PRN (Reason: Kidney stone pain) Qty: 14 0RF No Action baclofen 5 mg tablet 5 mg PO BID Qty: 20 0RF lidocaine-epinephrine 2 %-1:100,000 solution 2 ml Infiltration ONCE Qty: 4 0RF oxcarbazepine 300 mg tablet 300 mg PO BID escitalopram oxalate 20 mg tablet 10 mg PO DAILY (DME) blood-glucose meter Misc See Rx Instructions .MEDSUPPLY Qty: 1 0RF Rx Instructions: Use as directed BID for checking blood sugar (DME) Blood Glucose Test Strip See Rx Instructions .MEDSUPPLY Qty: 200 12RF Rx Instructions: Use as directed BID with glucometer to check blood sugar (DME) lancets Misc See Rx Instructions .MEDSUPPLY Qty: 200 12RF Rx Instructions: Use as directed bid to prick skin for blood sugar checks alcohol swabs Pads, Medicated 1 pad topical DIRECTED Qty: 200 12RF Rx Instructions: Use as directed to clean skin prior to finger stick or medication injection ProAir HFA 90 mcg/actuation HFA aerosol inhaler 2 puff inhalation Q4H PRN (Reason: shortness of breath or wheezing) Qty: 8.5 2RF ondansetron 4 mg tablet,disintegrating 4 mg PO Q8H PRN (Reason: nausea and vomiting) Qty: 30 0RF (DME) BD Eclipse 25 gauge x 1 needle See Rx Instructions .Route Qty: 100 0RF Rx Instructions: As directed (DME) syringe (disposable) [CareTouch Luer Lock Syringe] 3 mL syringe See Rx Instructions .Route Qty: 100 0RF Rx Instructions: As directed testosterone cypionate [Depo-Testosterone] 200 mg/mL oil 100 mg SUBCUT Q14D Qty: 1 5RF Discharge Orders: Discharge ED (Routine); Ordered 10/04/24 Ordered By: Ezio Arreaga Referrals: Raul Riley [employer] [Primary Care Provider] - 1 week Patient Instructions: Kidney Stones Activity Restrictions/Additional Instructions: Your CT scan showed you have a right kidney stone in your ureter down by your bladder that is approximately 2 to 3 mm in diameter. You should be able to pass this on your own. You have been prescribed Toradol tablets for pain medicine. If you develop fever chills nausea vomiting please feel free to return to the ER. Otherwise follow-up with your family practice physician within the next 7 to 10 days for further evaluation and treatment. Coding Level of Care Code ED Electronic Health Records Specialist for [facility]
[2024-05-04 00:08] VITALS: BP 141/93; PULSE 60; RESP 18; O2SAT 99
[2024-05-04] MEDS: iohexol 350 mg/mL 500 mL Btl (per mL) IV (00:22)
[2024-05-04 00:55] LABS: Bilirubin Urine Negative (Negative); Blood Urine 3+ (Negative); Glucose Urine UA Negative (Normal); Ketones Urine Negative (Negative); Leukocyte Esterase Urine Trace (Negative); Nitrate Urine Negative (Negative); Protein Urine Trace (Negative); Urine Appearance Clear (CLEAR); Urine Color Yellow (Yellow)
[2024-05-04 01:00] LABS: Add Urine Microscopic? YES; Bacteria Urine None Seen /hpf; Hyaline Casts Urine 1.21 /lpf; RBC Urine >100 /hpf (0-2); Squamous Epithelial Cell Urine 0-5 /hpf (0-5); WBC Urine 0-5 /hpf (0-5)
[2024-05-04] MEDS: ketorolac 30 mg/mL INJ IVP (01:18)
[2024-05-04 01:26] LABS: Add Urine Culture? Yes; Specific Gravity, Urine 1.043 (1.005-1.030)
[2024-05-04 01:38] VITALS: BP 150/81; PULSE 50; RESP 20; O2SAT 98
[2024-05-04 01:51] VITALS: BP 150/81; PULSE 50; O2SAT 98
== END 2024-05-04 01:52 | disposition home or self-care (01) ==
PROVIDERS: Emergency Provider Emergency Medicine; PCP Clinical Nurse Specialist Adult Health
DX: N20.0 Calculus of kidney (principal); Z87.891 Personal history of nicotine dependence; I10 Essential (primary) hypertension
CPT/HCPCS: 74177; 76870; 80053; 81001; 85025; 87086; 96374; 96375; 99285; J1885; J2270; J2405; J7030

== ENCOUNTER → 2024-06-25 10:33 | Outpatient (BNVA) | payer OTHER, SELFPAY | PROVIDERS: PCP Clinical Nurse Specialist Adult Health; Visit Provider Clinical Nurse Specialist Adult Health | DX: E29.1 Testicular hypofunction (principal) | CPT/HCPCS: 82040; 84270; 84403 ==

== ENCOUNTER → 2024-09-26 11:20 | Outpatient (BNVA) | payer OTHER, SELFPAY | PROVIDERS: PCP Clinical Nurse Specialist Adult Health; Visit Provider Clinical Nurse Specialist Adult Health | DX: I10 Essential (primary) hypertension (principal); R11.2 Nausea with vomiting, unspecified; F51.04 Psychophysiologic insomnia; E23.7 Disorder of pituitary gland, unspecified; G47.19 Other hypersomnia | CPT/HCPCS: 80053; 83036; 83690; 84403; 85025; 85651; 86140 ==

== ENCOUNTER 2024-10-03 08:18 | Outpatient (CLI) | payer OTHER, SELFPAY ==
--- NOTE | 2024-10-03 08:27 | XR_ITS ---
WS: [id number] XR chest 2V* [id number] REASON FOR EXAM: R05.8 - Other specified cough FINDINGS: The chest is unchanged compared to 02/25/2020. Heart and mediastinum within normal limits. Calcified granulomatous disease bilaterally. No acute pulmonary parenchymal or pleural abnormality. Mild degenerative spondylosis in the mid and lower thoracic spine. XR/XR chest 2V* [id number] IMPRESSION: Stable chest without acute abnormality.
== END 2024-10-03 08:19 | disposition home or self-care (01) ==
LOC: RAD 08:22
PROVIDERS: PCP Clinical Nurse Specialist Adult Health; Visit Provider Clinical Nurse Specialist Adult Health
DX: R05.8 Other specified cough (principal); D71 Functional disorders of polymorphonuclear neutrophils; M47.894 Other spondylosis, thoracic region
CPT/HCPCS: 71046

== ENCOUNTER → 2025-04-10 13:21 | Outpatient (BNVA) | payer OTHER, SELFPAY | PROVIDERS: PCP Clinical Nurse Specialist Adult Health; Visit Provider Clinical Nurse Specialist Adult Health | DX: I10 Essential (primary) hypertension (principal); K21.9 Gastro-esophageal reflux disease without esophagitis; R11.2 Nausea with vomiting, unspecified | CPT/HCPCS: 80053; 82306; 82607; 84403; 85025 ==

== ENCOUNTER 2025-07-09 18:11 | Emergency (ER) | payer OTHER, SELFPAY ==
[2025-07-09 18:16] VITALS: BP 165/79; PULSE 92; RESP 20; TEMP 36.6; O2SAT 96
[2025-07-09 18:30] VITALS: PULSE 92; O2SAT 95
--- NOTE | 2025-07-09 18:43 | XRR_ITS ---
PROCEDURE INFORMATION: Exam: XR Chest Exam date and time: 07/09/2025 6:54 PM Age: 35 years old Clinical indication: Dyspnea; Additional info: Dyspnea/cough TECHNIQUE: Imaging protocol: Radiologic exam of the chest. Views: 1 view. COMPARISON: CR XR chest 2V* [id number] 10/03/2024 8:32 AM FINDINGS: Lungs: Clear lungs. Pleural spaces: No pneumothorax or pleural effusion. Heart/Mediastinum: Cardiac silhouette is normal. Bones/joints: Unremarkable. XR/XR chest 1V portable [id number] IMPRESSION: No acute findings.
[2025-07-09 19:03] LABS: Hematocrit 42.2 % (37-53); Hemoglobin 15.00 g/dL (11.27-16.99); Mean Corpuscular HGB Conc 35.5 g/dL (30-55); Mean Corpuscular Hemoglobin 32.3 pg (27-33); Mean Corpuscular Volume 90.8 fl (82-101); Nucleated Red Blood Cells % 0 %; Platelet Count 185 10^3/cmm (157-399); Red Blood Count 4.65 10^6/uL (3.85-5.65); White Blood Count 9.23 10^3/uL (3.29-11.43)
[2025-07-09 19:28] LABS: Alanine Aminotransferase 19 U/L (0-41); Albumin Level 4.6 g/dL (3.5-5.2); Alkaline Phosphatase 74 U/L (40-130); Anion Gap 14.7 (5-19); Aspartate Amino Transferase 22 U/L (0-40); Blood Urea Nitrogen 8 mg/dL (6-20); Calcium 8.8 mg/dL (8.5-10.5); Carbon Dioxide 26 mmol/L (22-29); Chloride 105 mmol/L (98-107); Creatinine Clr Calc Pharmacy 149.1122; Globulin 2.9 g/dL (1.3-4.6); Glucose 98 mg/dL (65-115); Osmolality Calculated 292 mOsm/kg (285-295); Potassium 3.7 mmol/L (3.5-5.1); Sodium 142 mmol/L (136-145); Total Protein 7.5 g/dL (6.6-8.7)
[2025-07-09 19:48] VITALS: PULSE 76; RESP 18; O2SAT 98
[2025-07-09 19:55] VITALS: PULSE 71; RESP 16; O2SAT 99
[2025-07-09 20:09] VITALS: BP 146/88; O2SAT 95
--- NOTE | 2025-07-09 20:30 | W.ED.SOB ---
HPI - SOB/Dyspnea General: Chief Complaint: Shortness of Breath/Dyspnea Stated Complaint: Asthma Attach Time Seen by Provider: 07/09/25 19:36 History of Present Illness: HPI Narrative: 35-year-old male presents emergency room stating he is having asthma attack. Began earlier today and this progressively worsened he used albuterol inhaler throughout the day with little relief. Is not had any fever sweats chills no productive cough. He has had wheezing and sensation of congestion. Associated symptoms: Reports chest congestion; Deny abdominal pain, chest pain or fever(s) Related Data Home Medications ?Medication ?Instructions ?Recorded ?Confirmed oxcarbazepine 300 mg tablet 600 mg PO BID 06/25/24 04/10/25 sertraline 50 mg tablet 50 mg PO .QHS 04/10/25 04/10/25 ziprasidone HCl 40 mg capsule 40 mg PO DAILY 04/10/25 04/10/25 ziprasidone HCl 60 mg capsule 60 mg PO .QHS 04/10/25 04/10/25 Previous Rx's ?Medication ?Instructions ?Recorded safety needles 25 gauge x 1 (BD #100 ea 03/03/23 Eclipse) alcohol swabs 1 pad topical DIRECTED #200 ea 01/09/24 blood sugar diagnostic (Blood #200 ea 01/09/24 Glucose Test strips) blood-glucose meter #1 ea 01/09/24 lancets #200 ea 01/09/24 syringe (disposable) 3 mL #100 ea 08/06/24 (CareTouch Luer Lock Syringe) testosterone cypionate 200 mg/mL 100 mg (0.5 mL) SUBCUT Q14D #1 mL 09/28/24 intramuscular oil (Depo-Testosterone) famotidine 40 mg tablet (Pepcid) 40 mg PO DAILY #30 tabs 04/10/25 cholecalciferol (vitamin D3) 125 125 mcg PO DAILY #30 caps 04/12/25 mcg (5,000 unit) capsule ondansetron 4 mg disintegrating 4 mg PO Q8H PRN nausea and 06/06/25 tablet vomiting #30 tabs albuterol sulfate 90 mcg/actuation See Rx Instructions .Route 07/05/25 aerosol inhaler .COMPLEX #9 grams ipratropium 20 mcg-albuterol 100 2 puff inhalation Q6H #4 grams 07/09/25 mcg/actuation mist for inhalation (Combivent Respimat) prednisone 20 mg tablet 20 mg PO TID #15 tabs 07/09/25 Allergies Allergy/AdvReac Type Severity Reaction Status Date / Time CERTAIN COLOGNES Allergy Unknown Unknown Uncoded 04/10/25 12:56 Review of Systems Const: Denies: fever(s) or chills Card: Denies: chest pain Resp: Reports: dyspnea, non-productive cough, wheezing and chest congestion GI: Denies: abdominal pain : Denies: dysuria, urinary frequency or urinary urgency Musc: Denies: neck pain or back pain Skin/Breast: Denies: rash PFSH ED PFSH: Medical History Vitamin D deficiency Kidney stone Marijuana use, continuous Unintentional weight loss Testosterone deficiency Insomnia Hypertension Asthma Depression Anxiety Testosterone deficiency in male Surgical History No pertinent past surgical history Family History Father Diabetes Hypertension Mother , Passed last month from pneumonia Diabetes Hypertension Stroke Social History Smoking and tobacco/nicotine status: former use of tobacco/nicotine Alcohol intake: current Alcohol intake frequency: holidays/special occasions only Alcohol type: beer and hard liquor Physical Exam Const: GENERAL APPEARANCE: cooperative ORIENTATION/CONSCIOUSNESS: Yes awake, Yes oriented to person, Yes oriented to place and Yes oriented to time HENMT: COMMON NORMALS: normocephalic, atraumatic and hearing grossly normal bilaterally HEAD & SCALP: normocephalic and atraumatic Resp: COMMON NORMALS: normal respiratory effort, No retractions and No use of accessory muscles AUSCULTATION: wheezes (Scant wheezes improved with nebs) Cardio: COMMON NORMALS: regular rate, regular rhythm and No murmurs present (Cardio) RATE: regular rate RHYTHM: regular rhythm GI: COMMON NORMALS: Soft to palpation and No hepatosplenomegaly present AUSCULTATION: Yes normoactive bowel sounds PALPATION: Yes Soft to palpation, No Tenderness to palpation present (GI), No Guarding due to palpation present (GI) and Yes No hepatosplenomegaly present Extremity: COMMON NORMALS: normal to inspection, capillary refill normal, no clubbing, cyanosis or edema, no calf tenderness and no pedal edema Neuro: SENSORIUM/ORIENTATION: Yes oriented to person, Yes oriented to place and Yes oriented to time Skin: COMMON NORMALS: no rashes or lesions noted GENERAL SKIN EXAM: no rashes or lesions noted Course Vital Signs: Vital signs: Vital Signs Temperature 97.8 F 07/09/25 18:16 Pulse Rate 93 07/09/25 20:52 Respiratory Rate 16 07/09/25 20:52 Blood Pressure 158/85 07/09/25 20:52 Pulse Oximetry 97 07/09/25 20:52 Oxygen Delivery Me thod Room Air 07/09/25 20:09 MDM - SOB/Dyspnea Medical Decision Making Medical decision making Social determinants: None I reviewed the patient's medical record. I reviewed the patient's current home meds. Alternate historians: None Differential diagnosis: Asthma attack, pneumonia, COVID, flu Lab Review: Flu COVID RSV are negative no leukocytosis chemistry panel unremarkable Imaging: Chest x-ray negative Assessment of risk Level of risk: Moderate Hospitalization considerations: No acute diagnosis at this time can be discharged Reexamination: Repeat exam significant improvement of wheezing from baseline when he arrived Assessment and plan: Acute asthma exacerbation sats normal on room air after nebulizers he is feeling much better will discharge home with steroid taper Combivent inhaler and have patient follow-up with his primary care doctor in the next few days Lab Data 07/09/25 18:57 07/09/25 18:57 Labs/Radiology: Radiology Impressions Chest X-Ray 07/09/25 18:43 IMPRESSION: No acute findings. Laboratory Results WBC 9.23 10^3/uL (3.29-11.43) 07/09/25 18:57 RBC 4.65 10^6/uL (3.85-5.65) 07/09/25 18:57 Hgb 15.00 g/dL (11.27-16.99) 07/09/25 18:57 Hct 42.2 % (37-53) 07/09/25 18:57 MCV 90.8 fl (82-101) 07/09/25 18:57 MCH 32.3 pg (27-33) 07/09/25 18:57 MCHC 35.5 g/dL (30-55) 07/09/25 18:57 RDW 13.1 % (12.1-15.1) 07/09/25 18:57 Plt Count 185 10^3/cmm (157-399) 07/09/25 18:57 MPV 10.8 fL (7.4-10.4) H 07/09/25 18:57 Neut % (Auto) 71.8 % 07/09/25 18:57 Lymph % (Auto) 14.8 % 07/09/25 18:57 Branch % (Auto) 4.9 % 07/09/25 18:57 Eos % (Auto) 7.4 % 07/09/25 18:57 Baso % (Auto) 0.8 % 07/09/25 18:57 Neut # (Auto) 6.63 10^3/uL (1.8-7.7) 07/09/25 18:57 Lymph # (Auto) 1.4 10^3/uL (0.8-4.8) 07/09/25 18:57 Branch # (Auto) 0.5 10^3/uL (0.2-0.9) 07/09/25 18:57 Eos # (Auto) 0.7 10^3/uL (0.0-0.8) 07/09/25 18:57 Baso # (Auto) 0.1 10^3/uL (0.0-0.1) 07/09/25 18:57 Nucleated RBC % (auto) 0 % 07/09/25 18:57 Nucleated RBCs # 0.0 /100WBC 07/09/25 18:57 Sodium 142 mmol/L (136-145) 07/09/25 18:57 Potassium 3.7 mmol/L (3.5-5.1) 07/09/25 18:57 Chloride 105 mmol/L (98-107) 07/09/25 18:57 Carbon Dioxide 26 mmol/L (22-29) 07/09/25 18:57 Anion Gap 14.7 (5-19) 07/09/25 18:57 BUN 8 mg/dL (6-20) 07/09/25 18:57 Creatinine 0.9 mg/dL (0.7-1.2) 07/09/25 18:57 GFR Calculation 95.0 mL/min (90-130) 07/09/25 18:57 Glucose 98 mg/dL (65-115) 07/09/25 18:57 Calculated Osmolality 292 mOsm/kg (285-295) 07/09/25 18:57 Calcium 8.8 mg/dL (8.5-10.5) 07/09/25 18:57 Total Bilirubin 0.9 mg/dL (0.15-1.2) 07/09/25 18:57 AST 22 U/L (0-40) 07/09/25 18:57 ALT 19 U/L (0-41) 07/09/25 18:57 Alkaline Phosphatase 74 U/L (40-130) 07/09/25 18:57 Total Protein 7.5 g/dL (6.6-8.7) 07/09/25 18:57 Albumin 4.6 g/dL (3.5-5.2) 07/09/25 18:57 Globulin 2.9 g/dL (1.3-4.6) 07/09/25 18:57 Influenza A (PCR) Negative (Negative) 07/09/25 20:05 Influenza Type B (PCR) Negative (Negative) 07/09/25 20:05 RSV (PCR) Negative (Negative) 07/09/25 20:05 SARS-CoV-2 (PCR) Negative (Negative) 07/09/25 20:05 All radiology interpretation(s) finalized by discharge Discharge Plan Discharge Patient Disposition: Home Clinical Impression: Asthma with exacerbation Condition: Stable Prescriptions: New prednisone 20 mg tablet 20 mg PO TID Qty: 15 0RF Rx Instructions: 1 p.o. 3 times daily x3 days, 1 p.o. twice daily x2 days, 1 p.o. daily x2 days Combivent Respimat 20-100 mcg/actuation mist 2 puff inhalation Q6H Qty: 4 0RF No Action lidocaine-epinephrine 2 %-1:100,000 solution 2 ml Infiltration ONCE Qty: 4 0RF (DME) blood-glucose meter Misc See Rx Instructions .MEDSUPPLY Qty: 1 0RF Rx Instructions: Use as directed BID for checking blood sugar (DME) Blood Glucose Test Strip See Rx Instructions .MEDSUPPLY Qty: 200 12RF Rx Instructions: Use as directed BID with glucometer to check blood sugar (DME) lancets Misc See Rx Instructions .MEDSUPPLY Qty: 200 12RF Rx Instructions: Use as directed bid to prick skin for blood sugar checks alcohol swabs Pads, Medicated 1 pad topical DIRECTED Qty: 200 12RF Rx Instructions: Use as directed to clean skin prior to finger stick or medication injection oxcarbazepine 300 mg tablet 600 mg PO BID testosterone cypionate [Depo-Testosterone] 200 mg/mL oil 100 mg SUBCUT Q14D Qty: 1 5RF famotidine [Pepcid] 40 mg tablet 40 mg PO DAILY Qty: 30 11RF ziprasidone HCl 40 mg capsule 40 mg PO DAILY ziprasidone HCl 60 mg capsule 60 mg PO .QHS sertraline 50 mg tablet 50 mg PO .QHS (DME) BD Eclipse 25 gauge x 1 needle See Rx Instructions .Route Qty: 100 0RF Rx Instructions: As directed (DME) syringe (disposable) [[employer] Luer Lock Syringe] 3 mL syringe See Rx Instructions .Route Qty: 100 0RF Rx Instructions: As directed cholecalciferol (vitamin D3) 125 mcg (5,000 unit) capsule 125 mcg PO DAILY Qty: 30 6RF ondansetron 4 mg tablet,disintegrating 4 mg PO Q8H PRN (Reason: nausea and vomiting) Qty: 30 0RF albuterol sulfate 90 mcg/actuation HFA aerosol inhaler See Rx Instructions .ROUTE .COMPLEX Qty: 9 0RF Dose Instruction: INHALE 2 PUFFS BY MOUTH EVERY 4 HOURS NEEDED FOR SHORTNESS OF BREATH OR WHEEZING Rx Instructions: INHALE 2 PUFFS BY MOUTH EVERY 4 HOURS NEEDED FOR SHORTNESS OF BREATH OR WHEEZING Discharge Orders: Discharge ED (Routine); Ordered 07/09/25 Ordered By: Jaskaran Elliott Referrals: Raul Riley NP [Primary Care Provider, Family Practice] Discharge Diet: Usual diet Discharge Activity: Increase activity as tolerated Patient Instructions: Opioid Safety, Pain Management, Patient Portal & Patricia Instructions Activity Restrictions/Additional Instructions: [facility]. It is very important that you follow up as instructed or that you return to the Emergency Department should you have concerns or if your condition changes or worsens in any way. Emergency department visits are focused on emergent conditions, in some cases you may require further evaluation on an outpatient basis. You were seen in the emergency room complaint shortness of breath and wheezing improved with nebulizer treatments. Your white count was normal. Recommend we discharge you home with oral steroid taper to begin tomorrow Combivent inhaler you can use as needed. (Please note that included in your discharge packet is information concerning opioid safety and pain management. This information is given to all patients were discharged from the ER regardless of their discharge diagnosis or the medicines they usually take or are prescribed.) Print Language: Kiswahili Coding Level of Care Code ED Engineering Drawings Checker for Mago Griggs
[2025-07-09 20:52] VITALS: BP 158/85; PULSE 93; RESP 16; O2SAT 97
[2025-07-09 20:52] LABS: Respiratory Syncytial Virus Ce NEGATIVE (Negative); SARS-CoV-2 PCR NEGATIVE (Negative)
== END 2025-07-09 20:55 | disposition home or self-care (01) ==
PROVIDERS: Emergency Provider Family Medicine; PCP Clinical Nurse Specialist Adult Health
DX: J45.901 Unspecified asthma with (acute) exacerbation (principal)
CPT/HCPCS: 36415; 71045; 80053; 85025; 87637; 94640; 96372; 99284; J1100; J9999

== ENCOUNTER → 2025-07-15 11:20 | Outpatient (BNVA) | payer OTHER, SELFPAY | PROVIDERS: PCP Clinical Nurse Specialist Adult Health; Visit Provider Clinical Nurse Specialist Adult Health | DX: E34.9 Endocrine disorder, unspecified (principal); E55.9 Vitamin D deficiency, unspecified | CPT/HCPCS: 82306; 84403 ==